=== PATIENT | female | born 1970 | race Caucasian/White ===

== ENCOUNTER 2016-11-30 23:09 | Emergency (ER) | payer MEDICAID, OTHER ==
[~2016-11-30] VITALS: Ht 162.6 cm; Wt 74.0 kg
[~2016-11-30 23:09] MED LIST: CETI10CA PO; HC30CR25 TOP; POLY10DR19 LEFT EYE
[2016-11-30 23:13] VITALS: Ht 162.6 cm; Wt 74.0 kg
[2016-12-01 00:46] LABS: URINE BLOOD (Dip) POC 3+ (NEGATIVE)
[2016-12-01] MEDS ORDERED: ACETAMINOPHEN 325 MG TAB PO ONE (01:00)
[2016-12-01] MEDS ORDERED: SOD CHLORIDE 0.9% 1,000 ML IV ONE (01:00)
[2016-12-01] MEDS ORDERED: IBUP400T22 PO (01:54)
[2016-12-01] MEDS ORDERED: ONDANSETRON 4 MG INJ IV STA (01:54)
[2016-12-01] MEDS ORDERED: ONDA4TAB14 PO (01:54)
--- NOTE | 2016-12-01 01:57 | ERA ---
ER Documentation Chief Complaint Date/Time DATE: 12/01/16 TIME: 01:55 Chief Complaint sore throat , body aches, headache today, feet swelling x 1 yr, rash HPI This is a 46-year-old female with a chief complaint of nausea, vomiting and headache 2 days. Patient's daughter had similar symptoms and is a close contact 1 week ago. Patient denies decreased appetite, abdominal pain, dysuria , hematuria, back pain, migrating pain, constipation, postprandial abdominal pain, meningismus, new or recently changed medications, genital pain or ingestion of new or undercooked food. Patient has taken acetaminophen with minimal relief. Denies any other complaints. Describes no other associated manifestations. ROS All systems reviewed and are negative except as per history of present illness. Medications Home Meds Active Scripts Hydrocodone/Acetaminophen ([place] 5-325 Tablet) 1 Each Tablet, 1 TAB PO Q6H Y for PAIN, #7 TAB Prov:ED FLORES PA-C 12/01/16 Ibuprofen* (Motrin*) 400 Mg Tab, 400 MG PO Q6, #30 TAB Prov:ED FLORES PA-C 12/01/16 Ondansetron (Ondansetron Odt) 4 Mg Tab.rapdis, 4 MG PO Q6H Y for NAUSEA AND/OR VOMITING, #10 TAB Prov:ED FLORES PA-C 12/01/16 Hydrocortisone* Topical (Hydrocortisone* Topical) 2.5%-28.3 Gm Cream..g., 1 APPLIC TOP BID for 10 Days, #1 TUB Prov:RAQUEL DUKE MD 03/11/16 Cetirizine Hcl* (Zyrtec*) 10 Mg Capsule, 10 MG PO DAILY, #15 TAB.CHEW Prov:RAQUEL DUKE MD 03/11/16 Polymyxin B Sulfate-TMP* (Polymyxin B-TMP Eye Drops*) 10 Ml Drops, 1 DROP LEFT EYE QID for 7 Days, EA Prov:RAQUEL DUKE MD 03/11/16 Allergies Allergies: Coded Allergies: No Known Drug Allergies (Verified Allergy, 12/31/10) PMhx/Soc History of Surgery: Yes (GALLSTONES) Anesthesia Reaction: No Hx Neurological Disorder: No Hx Respiratory Disorders: No Hx Cardiac Disorders: Yes (HTN) Hx Psychiatric Problems: No Hx Miscellaneous Medical Probl: No Hx Alcohol Use: No Hx Substance Use: No Hx Tobacco Use: No Smoking Status: Never smoker Physical Exam Vitals Vital Signs Date Time Temp Pulse Resp B/P Pulse Ox O2 Delivery O2 Flow Rate FiO2 12/01/16 02:46 99.7 91 16 101/55 95 Room Air 11/30/16 23:13 103.7 105 20 130/62 97 Physical Exam Const: Healthy-appearing. Well-nourished. Well-developed. No acute distress. Head: Normocephalic, Atraumatic. Eyes: Non-injected; No scleral erythema, discharge or foreign body. EOMI and KYLAH bilaterally. Ears: Normal External Ears, EACs clear, TM normal bilaterally without erythema. Nose: Normal nose without discharge, septal deviation, or sinus tenderness. Oral: No oral edema visualized. Mucous membranes moist and pink. Neck: No cervical lymphadenopathy, masses or goiter palpated. Full range of motion. Supple. Trachea midline. ~ No meningismus. Pulm: Good air movement in upper and lower respiratory tracts. No dyspnea, stridor, tripoding or drooling. Clear to auscultation bilaterally. Cardio: Regular rate and rhythm; No murmurs, gallops or rubs auscultated. No JVD grossly observed. Radial and posterior tibial pulses 2+ bilaterally. No cyanosis. Capillary refill less than 2 seconds. Abd: Soft, non tender, non distended. No guarding, masses. Normal bowel sounds. No McBurney's point tenderness. MS: Normal motor strength, normal tone with gross examination. Skin: No petechiae or rashes. No ulcer, induration, jaundice. Good turgor. Back: No midline, flank or CVA tenderness. Ext: No cyanosis, or edema. Normal movement of all extremities grossly observed. Neur: Awake, alert and oriented x3. Neurovascularly intact bilaterally. Psych: Normal Mood and Affect. Results 24 hrs Laboratory Tests Test 12/01/16 00:51 Bedside Urine pH (LAB) 8.5 Bedside Urine Protein (LAB) 2+ Bedside Urine Glucose (UA) Negative Bedside Urine Ketones (LAB) Negative Bedside Urine Blood 3+ Bedside Urine Nitrite (LAB) Negative Bedside Urine Leukocyte Esterase (L Negative Current Medications Medications (Trade) Dose Ordered Sig/Fatimah Route PRN Reason Start Time Stop Time Status Last Admin Dose Admin Acetaminophen 650 mg 650 mg ONCE ONCE PO 12/01/16 01:00 12/01/16 01:01 DC 12/01/16 00:49 Sodium Chloride (NS) 1,000 ml @ 1,000 mls/hr Q1H ONCE IV 12/01/16 01:00 12/01/16 01:59 DC 12/01/16 00:54 Ondansetron HCl (Zofran Inj) 4 mg ONCE STAT IV 12/01/16 01:54 12/01/16 01:55 DC 12/01/16 02:02 Procedures/MDM This is an overweight but otherwise healthy 46-year-old female presenting with a chief complaint of nausea and vomiting as described in the history and physical examination. Patient is also describing headache. Patient was evaluated and worked up for abdominal discomfort as described in the history and physical exam. Patient was given 1 L of normal saline and acetaminophen and Zofran with symptomatic relief. Urinalysis and urine tests were unremarkable. Most likely diagnosis is viral gastroenteritis. Outpatient treatment will include morphine for symptomatic relief, Zofran for nausea and ibuprofen for further fever control if needed. Patient says that they still have ibuprofen at home. At this time I do not suspect appendicitis, volvulus, necrotizing enterocolitis , meckels diverticulum; as well as testicular torsion, UTI, peritonitis, cholelithiasis, acute pancreatitis, obstruction, or intra-abdominal ischemia. On repeat exam, the abdomen remains nontender. The patient is well appearing, and tolerates PO. I have spoke with them regarding their condition and future management. They have verbally responded that they understand and agree to their status and treatment plan, including the necessity for close followup. I have spoke with my attending who agrees with the assessment and plan. The patients vitals are stable, and their current condition is appropriate for discharge. The patient will be given discharge instructions with return precautions. Departure Diagnosis: Primary Impression: Viral gastroenteritis Condition: Stable Additional Instructions: Return to ED and 8-12 hours for reevaluation. Follow up with your PCP within the next 1-3 days for a more thorough evaluation and a possible referral to a specialist. Return the the emergency department immediately if symptoms worsen or change. If you have any questions regarding medications, ask your pharmacist or us before you leave. If any adverse reactions occur while taking your medications, discontinue the treatment and return to the emergency department immediately. Take your medications as directed, and complete the entire course of treatment. ED FLORES PA-C Dec 01, 2016 01:57
[2016-12-01 02:46] VITALS: BP 101/55; PULSE 91; RESP 16; TEMP 99.7
[2016-12-01] MEDS ORDERED: HYDR-906 PO (02:57)
== END 2016-12-01 03:18 | disposition home or self-care (01) ==
LOC: FTE 23:09
DX: A08.4 Viral intestinal infection, unspecified (principal); I10 Essential (primary) hypertension
CPT/HCPCS: 81003; 96374; J2405; J7030; Z7502; Z7610